=== PATIENT | female | born 1985 ===

== ENCOUNTER 2017-08-27 05:50 | Emergency (ER) | payer OTHER ==
[2017-08-27 06:04] VITALS: BMI 34.3
--- NOTE | 2017-08-27 07:56 | OBHP ---
Datetime: 08/27/2017 06:28 IP Adm Impression: Term, intrauterine IP Admit Plan: Observation/Evaluation; Discharge home Admit Comment, IP Provider: 31 y/o F at 40.3 weeks GA, ENRIQUE 08/25/17 by LMP and confirmed by 7 weeks US, c/o uterine CTX's and low back pain since 3 am today. CTX's are 7/10 intensity, occurs ever y 10-15 minutes. No VB or LOF. FM present. Pt denies fever, chills, H/A, CP, SOB or rash. All systems reviewed except as above. NKDA Meds: PNV PN Care: [facility]. No adherent with pre-kimo care. PN labs: missing 3rd trim labs and GBS cultture. PMHx: Depression and anxiety. PSHx: denied FHx: denied SHx: Pt smokes 5-7 ciagrettes a day during . Denies alcohol or rec drugs. A/P 31 y/o F with IUP at 40.3 weeks, with CTX, not in active labor. --Observation --Will re-evaluate in 1-2 hours. Case discussed with Dr Chamorro, OB powertrain calibration engineer. GTolentino PGY-1. OB Hospitalist Addendum: Pt seen and examined by me. Agree a/ above. 31 yo at 40+3 wks w / lower back and suprapubic pain. VE: cx is poterior/ high. Pt rechecked at 7:[address] Hodge. E xam unchanged. NST reactive. Pt discharged home and given labor precautions. (ES) Pelvic Type - PN: Adequate Abdomen - PN: Normal Heart - PN: Normal Neurologic - PN: Normal HEENT - PN: Normal General - PN: Normal FHR - Baseline A Provider: 125 Comments, ACOG Physical Exam: Gen: pt in discomfort. HEENT: Left conjunctiva and sclera erythematous. Neck: good ROM Chest: normal breathing pattern. ABD: gravid, soft, non-tender. EXT: perpheral edema 2+. Bedside US: cephalic presentation. IP Hx Assessment: The History has been Reviewed and is Current EGA AdmitDate IP: 40.3 Vital Signs Provider: Reviewed IP Chief Complaint: Uterine contractions NICHD Variability Prov Fetus A: Moderate 6-25bpm NICHD Accel Fetus A IP Provider: 15X15 FHR Category Provider Fetus A: Category I Dilatation, Provider: 0 Effacement, Provider: thick Station, Provider: high Genitourinary Exam: Normal
--- NOTE | 2017-08-27 07:58 | OBDCSUM ---
Datetime: 08/27/2017 07:55 Discharged to, Provider: Home Follow up at, Provider: [facility] Discharge Instructions, Provider: Routine instructions given Discharge Diagnosis, Provider: False Labor - Undelivered Discharge Time: 08/27/2017 07:55 Follow up in weeks, Provider: 08/30/2017
[2017-08-27 13:36] VITALS: BP 135/77; PULSE 79; RESP 16; TEMP 97.6; O2SAT 99
== END 2017-08-27 09:00 | disposition home or self-care (01) ==
LOC: H.EROB2 05:50
DX: O47.1 False labor at or after 37 completed weeks of gestation (principal); O26.93 Pregnancy related conditions, unspecified, third trimester; R10.2 Pelvic and perineal pain; M54.5 Low back pain; Z3A.40 40 weeks gestation of pregnancy; O48.0 Post-term pregnancy

== ENCOUNTER 2017-09-01 21:59 | Inpatient (IN) | payer MEDICAID, OTHER ==
[2017-09-01 22:34] VITALS: BMI 36.3
[2017-09-01] MEDS ORDERED: Lactated Ringer's 1,000 ML IV SCH (23:30)
[2017-09-02 00:37] LABS: BASO # 0.1 K/uL (0.0-0.2); BASO % 0.3 % (0.0-2.0); EOS # 0.1 K/uL (0.0-0.7); EOS % 0.9 % (0.0-4.0); HEMOGLOBIN 10.5 g/dL (12.0-16.0); LYMPH # 3.1 K/uL (1.0-4.3); LYMPH % 19.1 % (20.0-40.0); MEAN CELL VOLUME 83.6 fl (81.0-99.0); MEAN CORPUSCULAR HEMOGLOBIN 27.1 pg (27.0-31.0); MEAN CORPUSCULAR HGB CONC 32.4 g/dL (33.0-37.0); MEAN PLATELET VOLUME 8.4 fl (7.2-11.7); MONO # 1.3 K/uL (0.0-0.8); MONO % 7.9 % (0.0-10.0); NEUT # 11.6 K/uL (1.8-7.0); NEUT % 71.8 % (50.0-75.0); NRBC % 0.1 % (0.0-0.0); RBC 3.88 Mil/uL (3.80-5.20); RED CELL DISTRIBUTION WIDTH 15.2 % (11.5-14.5); WHITE BLOOD COUNT 16.2 K/uL (4.8-10.8)
[2017-09-02 02:04] LABS: BARBITURATES, UR NEGATIVE (NEGATIVE); BENZODIAZEPINES, UR NEGATIVE (NEGATIVE); OPIATES, UR NEGATIVE (NEGATIVE); PHENCYCLIDINE, UR NEGATIVE (NEGATIVE)
[2017-09-02] MEDS: Lactated Ringer's 1,000 ML IV SCH (07:30)
--- NOTE | 2017-09-02 13:44 | OBPN ---
Datetime: 09/02/2017 13:39 IP Progress Impression: Normal progression of labor IP Informed Consent Obtain: Vaginal Delivery IP Procedures: Sterile Vag Exam IP Progress Plan: Continue present management Contraction Comments Provider: occasional FHR - Baseline A Provider: 120 IP Progress Note Comment: Patient for evaluation, comfortable. Cervidil removed, patient C/T/H. will start Cytotec 50mg PO q 6 hours. WEO=309 mod lalitha, +accels, no decels. TOCO=isiah occasionally. Patient does not want pain medication at this time Vital Signs Provider: Reviewed; Within Normal Limits NICHD Accel Fetus A IP Provider: 15X15 NICHD Variability Prov Fetus A: Moderate 6-25bpm Dilatation, Provider: closed Effacement, Provider: thick Station, Provider: -3 Datetime: 09/01/2017 22:52 FHR Category Provider Fetus A: Category I
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
[2017-09-03] MEDS ORDERED: Promethazine 25 MG in Sodium Chloride 0.9% 50 ML IVPB STA (00:28)
[2017-09-03] MEDS ORDERED: Nalbuphine 20 mg/ml Inj (1 ml) IVP PRN ×2 (00:29→23:30)
[2017-09-03] MEDS: Lactated Ringer's 1,000 ML IV SCH (08:23)
--- NOTE | 2017-09-03 09:51 | OBPN ---
Datetime: 09/03/2017 09:43 IP Progress Impression Other: Induction for post-dates IP Progress Plan: Induction FHR - Baseline A Provider: 110's IP Progress Note Comment: 31 yo at 41+2 wks for induction for post-dates, s/p cervidil, miso #4 Will give miso x 2 every 4 hours and then reassess Discussed plan w/ pt FHT reassuring, GBS unknown NICHD Accel Fetus A IP Provider: 15X15 NICHD Variability Prov Fetus A: Moderate 6-25bpm
[2017-09-03] MEDS ORDERED: Promethazine 25 MG in Sodium Chloride 0.9% 50 ML IVPB ONE (23:30)
--- NOTE | 2017-09-04 00:29 | OBPN ---
Datetime: 09/03/2017 21:51 IP Progress Impression Other: Induction for post-dates IP Informed Consent Obtain: Section Delivery; Risks, Benefits and Alternatives Discussed IP Procedures: Sterile Vag Exam IP Progress Plan: Deliver- Section Membranes, Provider: Intact FHR - Baseline A Provider: 130's IP Progress Note Comment: 31 yo at 41+2 wks for induction for post-dates. Pt told she was now 2cm/ 65% and that we would proceed w/ pitocin Pt requested that she be delivered by section Discussed risks, benefits and alternatives of the procedure Consents obtained and all questions answered. NICHD Accel Fetus A IP Provider: 15X15 FHR Category Provider Fetus A: Category I NICHD Variability Prov Fetus A: Moderate 6-25bpm Dilatation, Provider: 2 Effacement, Provider: 65 Station, Provider: -2 NICHD Decel Fetus A IP Provider: None
[2017-09-04] MEDS ORDERED: Oxytocin 30 units/LR 500ML 30 UNITS/500 ML BAG IV ONE (06:08)
[2017-09-04] MEDS: Lactated Ringer's 1,000 ML IV SCH ×2 (07:24→08:28)
[2017-09-04] MEDS ORDERED: ceFAZolin 2 GM in Sodium Chloride 0.9% 100 ML IVPB ONE (08:00)
[2017-09-04] MEDS ORDERED: Morphine 1 mg/ml preservative-free Inj(Duramorph) ONE (08:57)
[2017-09-04] MEDS ORDERED: Triamcinolone Acetonide 40 mg/mL Inj ONE (09:07)
[2017-09-04] MEDS ORDERED: Oxycodone/Acetaminophen 5/325 mg Tab PO PRN (09:42)
[2017-09-04] MEDS ORDERED: Oxytocin 30 units/LR 500ML 30 UNITS/500 ML BAG IV SCH (09:45)
[2017-09-04] MEDS ORDERED: Simethicone 80 mg Chewtab PO SCH (10:00)
[2017-09-04] MEDS ORDERED: Naloxone 0.4 mg/ml Inj (Adult) IVP PRN ×2 (10:08→16:51)
[2017-09-04] MEDS ORDERED: DiphenhydrAMINE 50 mg/ml Inj IVP PRN (10:08)
--- NOTE | 2017-09-04 10:16 | OBDS ---
DELIVERY PERSONNEL Delivery Doctor: Angel Woodruff MD Hosiery Mender: Jen Ceja RN Anesthesiologist: Kenji Del Cid MD Resident: Chaya Man MD MATERNAL INFORMATION Delivery Anesthesia: Spinal Medications in Delivery: Pitocin 30u/500mL of NS Estimated Blood Loss (ml): 800 Placenta Cultured: No Maternal Complications: None Provider Comments: Surgeon: Dr. Woodruff Analysis Reporting Developer: Dr. Chamorro Pre-op Dx: Elective Section, failed induction Procedure: Primary LTCS Post-op: Same Findings: Live female infant 8lbs 5oz, 9/9, cephalic, clear fluid, grossly nml tubes ovaries, plac enta, uterus EBL: 800mL UO: 100mL Total input: 700mL Anesthesia: Spinal by Dr. Conroy Complications: None Condition: Stable Pathology: cord blood LABOR SUMMARY EDC: 08/24/2017 00:00 No. Babies in Womb: 1 Attempted: No Labor Anesthesia: None LABOR INFORMATION Reason for Induction: Other Reason for Induction Other: POSTDATES Cervical Ripening Agents: Cytotec @ SEE MAR Other Ripening Agents: Inserted by Dr. Beyer Oxytocin: N/A Group B Beta Strep: Not Done Antibiotics # of Doses: Ancef 2gm Antibiotics Time of Last Dose: 854 Steroids Given: None Reason Steroids Not Administered: Not Applicable MEMBRANES Membranes Rupture Method: Artificial Rupture of Membranes: 09/04/2017 09:14 Length of Rupture (hrs): 0.02 Amniotic Fluid Color: Clear Amniotic Fluid Amount: Moderate Amniotic Fluid Odor: Normal STAGES OF LABOR Stage 3 hrs: 0 Stage 3 min: 1 CSECTION DELIVERY Primary Indication: Failed Induction CSection Urgency: Non Elective CSection Incidence: Primary Labor: No Labor Elective: Nonelective CSection Incision: Lower Uterine Transverse BABY A INFORMATION Delivery Date/Time: 09/04/2017 09:15 Method of Delivery: Born in Route : No : N/A Forceps: N/A Vacuum Extraction: N/A Shoulder Dystocia : No SHOULDER DYSTOCIA BABY A Infant Delivery Date/Time: 09/04/2017 09:15 PRESENTATION/POSITION BABY A Presentation: Cephalic Cephalic Presentation: Vertex Breech Presentation: N/A PLACENTA INFORMATION BABY A Placenta Delivery Time : 09/04/2017 09:16 Placenta Method of Delivery: Manual Removal Placenta Status: Delivered SCORES BABY A Heart Rate 1 min: >100 bpm Resp Effort 1 min: Good Cry Reflex Irritability 1 min: Cough or Sneeze or Pulls Away Muscle Tone 1 min: Active Motion Color 1 min: Body Seeley, Extremities Blue Resuscitation Effort 1 min: N/A SCORE 1 MIN: 9 Heart Rate 5 min: >100 bpm Resp Effort 5 min: Good Cry Reflex Irritability 5 min: Cough or Sneeze or Pulls Away Muscle Tone 5 min: Active Motion Color 5 min: Body [place]ley, Extremities Blue Resuscitation Effort 5 min: N/A SCORE 5 MIN: 9 INFANT INFORMATION BABY A Gestational Age at Delivery: 41.4 Gestational Status: Term Infant Outcome : Liveborn Condition : Stable Sex: Female IDENTIFICATION/MEDS BABY A ID Band Number: [id number] WEIGHT/LENGTH BABY A Infant Birthweight (gms): 3770 Infant Weight (lb): 8 Weight (oz): 5 Infant Length Inches: 20.00 Infant Length cms: 50.8 CORD INFORMATION BABY A No. Cord Vessels: 3 Nuchal Cord : N/A Cord Blood Taken: Yes Suction: Mouth
--- NOTE | 2017-09-04 14:29 | OP ---
PROCEDURE DATE: 09/04/2017 PREOPERATIVE DIAGNOSIS: Elective section on maternal request, failed induction at late term. POSTOPERATIVE DIAGNOSIS: Elective section on maternal request, failed induction at late term. SURGEON: Sunitha Woodruff MD VISITOR SERVICES INFORMATION ASSISTANT: Libby Chamorro MD and Magda, PGY1. TYPE OF ANESTHESIA: Spinal. ANESTHESIA ADMINISTERED BY: Lopez Conroy MD FINDINGS: White female infant, cephalic presentation, 8 pounds 5 ounces, 9 and 9 Apgars. Clear fluid. Grossly normal tubes, ovaries, placenta, and uterus. ESTIMATED BLOOD LOSS: 800 mL. URINE OUTPUT: 100 mL. TOTAL FLUID INPUT: 100 mL. COMPLICATIONS: None. CONDITION: Stable. PATHOLOGY SPECIMEN: Cord blood. INDICATIONS: This is a 31-year-old G2, P0 at 41 weeks' plus who presents to labor and delivery for induction and progressed only 2 cm after multiple days on labor and delivery. The patient got to a point where she did not want to continue the induction process anymore and requested section. The patient was advised the risks and benefits of proceeding with a vaginal induction versus intellectual section and verbalized understanding and still elected to proceed with an elective . The patient was advised the risks and benefits of surgery including risk of bleeding, infection, damage to surrounding organs such as bowel, bladder, ureter and uterus. The patient verbalized understanding and signed informed consent. DESCRIPTION OF PROCEDURE: The patient was taken to the OR, Ancef was given preoperatively and SCDs were placed bilaterally. The patient was prepped and draped in a normal sterile fashion in dorsal supine position with a leftward tilt. A Pfannenstiel skin incision was made with a scalpel and carried through to the underlying layer of fascia with the Bovie. The fascia was incised in the midline, the incision was extended laterally with the Bovie and used the Cory clamp to tent up the inferior aspect of the incision, which we dissected off the underlying pyramidalis muscles with the Bovie. In a similar fashion, we dissected using the Cory clamps and tented up the superior aspect of this incision and dissected off of the rectus abdominis muscles. The muscles were bluntly in the midline. The peritoneum was identified and grasped with hemostats and entered bluntly with the Metzenbaum scissors. The lower uterine segment was identified. The bladder blade was inserted. The vesicouterine peritoneum was identified and a bladder flap was created with the Metzenbaum scissors. The lower uterine segment was incised in a transverse fashion and uterine cavity was entered. Clear fluid was noted. was delivered in the cephalic presentation atraumatically followed by shoulder and rest of the infant atraumatically. Cord was clamped and cut. was handed off to awaiting pediatric team. Cord blood was obtained. The uterus was exteriorized and placenta was extracted manually. Uterus was cleared off all clots. Uterine incision was repaired with an 0 Vicryl stitch and second imbricating incision was repaired with an 0 Monocryl stitch and small bleeders were repaired with an 0 Vicryl stitch. The uterus was returned to the abdomen, gutters were cleared off all clots. Peritoneum was closed with 2-0 Monocryl and muscle was reapproximated with the same stitch. The fascia was closed with an 0 Vicryl suture and subcutaneous fat was reapproximated with plain gut suture. Skin was closed with 4-0 Monocryl. Sponge, lap, and needle counts were correct x4. The patient was taken to the recovery room in stable condition. No other complications. Sunitha Woodruff MD
[2017-09-04] MEDS: Oxycodone/Acetaminophen 5/325 mg Tab PO PRN (22:10)
[2017-09-04] MEDS: Simethicone 80 mg Chewtab PO SCH (22:11)
[2017-09-04] MEDS: DiphenhydrAMINE 50 mg/ml Inj IVP PRN (22:30)
[2017-09-05] MEDS: DiphenhydrAMINE 50 mg/ml Inj IVP PRN (03:38)
[2017-09-05] MEDS: Simethicone 80 mg Chewtab PO SCH ×4 (03:40→21:06)
[2017-09-05 07:41] LABS: HEMOGLOBIN 9.7 g/dL (12.0-16.0); MEAN CELL VOLUME 83.7 fl (81.0-99.0); MEAN CORPUSCULAR HEMOGLOBIN 27.2 pg (27.0-31.0); MEAN CORPUSCULAR HGB CONC 32.5 g/dL (33.0-37.0); RBC 3.57 Mil/uL (3.80-5.20); RED CELL DISTRIBUTION WIDTH 14.9 % (11.5-14.5); WHITE BLOOD COUNT 16.4 K/uL (4.8-10.8)
[2017-09-05] MEDS: Multivitamin With Minerals Tab PO SCH (08:15)
[2017-09-05] MEDS: Oxycodone/Acetaminophen 5/325 mg Tab PO PRN ×3 (08:15→22:40)
[2017-09-05] MEDS ORDERED: Multivitamin With Minerals Tab PO SCH (09:00)
[2017-09-05] MEDS ORDERED: Lansinoh for Breast Feeding Mothers TP ONE (17:07)
[2017-09-06] MEDS: Simethicone 80 mg Chewtab PO SCH ×5 (03:55→21:44)
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
[2017-09-06] MEDS: Multivitamin With Minerals Tab PO SCH (09:33)
--- NOTE | 2017-09-06 11:28 | OBPPN ---
Datetime: 09/06/2017 06:36 PP Pain Prov: Within normal limits PP Nausea Prov: Denies PP Flatus Prov: Yes PP BM Prov: Yes PP Breasts Prov: Normal PP Heart Prov: Normal PP Lungs Prov: Normal PP Abdomen/Uterus Prov: Normal PP Lochia Prov: Normal PP Vulva/Perineum Prov: Normal PP CVA Tenderness Prov: Not Done PP Extremities Prov: Normal PP C/S Incision Prov: Normal PP Progress Prov: Normal PP Impression Prov: Normal progression PP Plan Prov: Continue present management PP Progress Note Prov: S: 31 YO POD 2, s/p . Pt is seen and examined this AM. No ac grindstone overnight events. Pt endorning abdominal pain, but tolerable with pain meds. Pt is ambulating jeffrey und the room and to the bathroom without any difficulties. Bleeding has improved. Tolerating PO diet. +BM and passing flatus. Denies chest pain, dyspnea, n/v, fever/chills, diarrhea, nausea/vomiting, an d calf pain. O: VS: wnl, afebrile GEN: Awake, alert and baby by bedside. NAD HEENT: EOMI, moist mucosa. LUNGS: CTA B/L, no wheezing, rhonci, or rales CVS: RRR, S1,S2 no murmurs ABD: ND, +BS, soft abdomen, firm fundus below umbilicus. Wound is clean, dry and intact. No induration, redness or fluctuation. [place] intact, no dehiscen ce EXT: No edema, neg calf tenderness NEURO/PSYCHI: AAOx3, no grossly focal deficit, preserved affect and mood. Assessment/Plan: 31 YO POD2, s/p repeat on 09/04/17 for failed IOL. Pt gave to a baby girl. Pt remains afebrile, tolerating pain with medication, good PO intake and urinating wi thout any difficulties. Doing well on POD2. -C/w regular diet as tolerated. -dressing removed -OOB with caution SCDs for DVT prophylaxis -C/w Percocet 5/325 mg and Ibuprofen 600 mg for pain prn -C/w Colace 100mg PO BID -Encourage and ambulating. Gisselle Beyer, PGY I OB Hospitalist note: Pt seen on rounds this AM. Agree with PGY1 note. MILAGROO Vital Signs Provider PP: Reviewed; Within Normal Limits
[2017-09-07] MEDS: Lansinoh for Breast Feeding Mothers TP SCH ×2 (02:06→08:34)
[2017-09-07] MEDS: Simethicone 80 mg Chewtab PO SCH ×2 (04:32→09:03)
--- NOTE | 2017-09-07 07:26 | OBPPN ---
Datetime: 09/07/2017 05:38 PP Pain Prov: Within normal limits PP Nausea Prov: Denies PP Flatus Prov: Yes PP BM Prov: Yes PP Breasts Prov: Normal PP Heart Prov: Normal PP Lungs Prov: Normal PP Abdomen/Uterus Prov: Normal PP Lochia Prov: Normal PP Vulva/Perineum Prov: Normal PP CVA Tenderness Prov: Not Done PP Extremities Prov: Normal PP C/S Incision Prov: Normal PP Progress Prov: Normal PP Impression Prov: Normal progression PP Plan Prov: Continue present management; Discharge PP Progress Note Prov: S: 31 YO POD 3, s/p . Pt is seen and examined this AM. No ac eliza overnight events, states that she has not been sleeping well due to the baby keeping her up. Endo rsing pelvic pain but pain is well controlled with pain meds. Pt is ambulating without any difficulti es. Bleeding has improved, like menses now. Tolerating PO diet. + BM/+ passing flatus. Denies chest p ain, dyspnea, n/v, fever/chills, diarrhea, nausea/vomiting, and calf pain. O: VS: wnl, afebrile GEN: Awake, alert and baby by bedside. NAD HEENT: EOMI, moist mucosa. LUNGS: CTA B/L, no wheezing, rhonci, or rales CVS: RRR, S1,S2 no murmurs ABD: ND, +BS, soft abdomen, firm fundus @ umbilical level. Wound is clean, dry and intact. No induration, redness or fluctuation. EXT: No edema, neg calf tenderness NEURO/PSYCHI: AAOx3, no grossly focal deficit, preserved affect and mood. Assessment/Plan: 31 YO POD3, s/p on 09/04/17 for failed IOL. Pt gave to a ba by girl. Pt remains afebrile, tolerating pain with medication, good PO intake and urinating without a ny difficulties. Doing well on POD3. -C/w regular diet as tolerated. -dressing removed -OOB with caution SCDs for DVT prophylaxis -C/w Percocet 5/325 mg and Ibuprofen 600 mg for pain prn -C/w Colace 100mg PO BID -Encourage and ambulating. -will d/c pt home today -follow up in [facility] in 1 week for WC, in 6 weeks for PP follow up -see MD in 2-3 days for baby Gisselle Kayleen, PGY I OB Hospitalist Addendum: Pt seen and examined by me. Agree w/ above. POD 3 s/p primary elective cesrean section, doing well. Discharge home today. (ES) Vital Signs Provider PP: Reviewed; Within Normal Limits
--- NOTE | 2017-09-07 07:31 | OBDCSUM ---
Datetime: 09/07/2017 05:41 Discharged to, Provider: Home Follow up at, Provider: [facility] Disch Instr Activity: Normal activity; May be up to bathroom; May be up for meals; May Shower Disch Instr Diet: Regular Discharge Instructions, Provider: Routine instructions given Discharge Diagnosis, Provider: Term Delivered Discharge Time: 09/07/2017 05:41 Follow up in weeks, Provider: 1wk, 6 wk Contraception discussed, Prov: Yes Disch Activity Restrictions: No exercising; No lifting; No driving; Minimize stair-climbing; No sexu al activity; Nothing in vagina - [place], tampons, douche Discharge Comment, Provider: 31 YO POD3, s/p repeat on 09/04/17 for failed IOL. Pt g ave to a baby girl @41.1 wks IUP @ 9:15AM. of 9/9 and weight of 3770g. No complications d uring the post- period. Pt is tolerating PO diet, pain is well controlled, and ambulating witho ut difficulties. Doing well POD day 3. Discharge Instructions: 1.Encourage and ambulating 2.PNV 1 tab po daily 3.Ibuprofen and Percocet for mild-mod pain and colace for constipation. Iron 325mg PO daily. 4.ER precautions: If excessive bleeding or fever without relief from medication, go to ED 5.F/U in [facility] in 1 wks for WC, 6 wks for PP visit and follow up in 2-3 days for baby. Gisselle Beyer, PGY I Contraception after Delivery: Undecided
[2017-09-07] MEDS: Multivitamin With Minerals Tab PO SCH (08:34)
[2017-09-07] MEDS ORDERED: Lansinoh for Breast Feeding Mothers TP SCH (09:00)
[2017-09-07 18:10] VITALS: BP 127/70; PULSE 85; RESP 20; TEMP 97.6
== END 2017-09-07 14:10 | disposition home or self-care (01) | DRG 766 ==
LOC: H.EROB2 21:59 → H.L&D 23:24 → H.OB/GYN 09-04 12:50
PROVIDERS: ADMIT Obstetrics & Gynecology; ATTEND Obstetrics & Gynecology
PROC: 4A1HXCZ Monitoring of Products of Conception, Cardiac Rate, External Approach (ICD-10-PCS; 2017-09-01)
PROC: 10D00Z1 Extraction of Products of Conception, Low, Open Approach (ICD-10-PCS; principal; 2017-09-04)
PROC: 3E0P7VZ Introduction of Hormone into Female Reproductive, Via Natural or Artificial Opening (ICD-10-PCS; 2017-09-04)
PROC: 10907ZC Drainage of Amniotic Fluid, Therapeutic from Products of Conception, Via Natural or Artificial Opening (ICD-10-PCS; 2017-09-04)
DX: O48.0 Post-term pregnancy (principal); O61.0 Failed medical induction of labor; Z37.0 Single live birth; Z3A.41 41 weeks gestation of pregnancy; K59.00 Constipation, unspecified